=== PATIENT | female | born 1955 | race Caucasian/White ===

== ENCOUNTER 2016-02-28 19:12 | Observation (INO) | payer OTHER ==
[~2016-02-28] VITALS: Ht 170.2 cm; Wt 88.5 kg
[~2016-02-28 19:12] MED LIST: B-COCAP2 PO; CYM60 PO; LISI20TA3 PO; MULT-513 PO
[2016-02-28] MEDS ORDERED: LSN20 PO (19:36)
[2016-02-28] MEDS ORDERED: CYM/60 PO (19:36)
[2016-02-28] MEDS ORDERED: B-CO1CAP17 PO (19:37)
[2016-02-28 19:50] LABS: HEMATOCRIT 43.7 % (37-47); MEAN CORPUSCULAR HEMOGLOBIN 30.5 pg (25-34); MEAN CORPUSCULAR HGB CONC 33.2 g/dl (32-36); PLATELET COUNT 263 K/uL (130-400); RED BLOOD COUNT 4.75 M/uL (4.2-5.4); WHITE BLOOD COUNT 10.23 K/uL (4.8-10.8)
[2016-02-28 19:59] LABS: INR 0.9 (0.9-1.1); PARTIAL THROMBOPLASTIN RATIO 1.1; PROTHROMBIN TIME (PATIENT) 10.1 SECONDS (9.0-12.0)
[2016-02-28 20:05] LABS: ALT/SGPT 44 U/L (12-78); BLOOD UREA NITROGEN 17 mg/dl (7-18); BUN/CREATININE RATIO 21.9 (10-20); CALCIUM 9.3 mg/dl (8.5-10.1); CARBON DIOXIDE 25 mmol/L (21-32); CHLORIDE 103 mmol/L (98-107); CREATININE 0.79 mg/dl (0.60-1.20); GLUCOSE 85 mg/dl (70-99); POTASSIUM 4.2 mmol/L (3.5-5.1); SODIUM 141 mmol/L (136-145)
[2016-02-28] MEDS ORDERED: CONJ0.453 PO (20:07)
--- NOTE | 2016-02-28 20:08 | DIAGNOSTIC IMAGING REPORT ---
CHEST ONE VIEW PORTABLE CLINICAL HISTORY: Atypical chest pain and shortness of breath. COMPARISON STUDY: 05/03/2015 FINDINGS: The cardiac and mediastinal contours are normal. There is no evidence of focal pulmonary consolidation. There is no evidence of failure. No pleural effusions are visualized.[ IMPRESSION: No active disease in the chest. Electronically signed by: Aba Ascencio M.D. 02/28/2016 8:06 PM Dictated Date/Time: 02/28/2016 8:06 PM
[2016-02-28 20:09] LABS: ALB/GLOB RATIO 1.2 (0.9-2); ALKALINE PHOSPHATASE 96 U/L (45-117); AST/SGOT 24 U/L (15-37)
[2016-02-28] MEDS ORDERED: ASPIRIN 81 MG CHEW PO STA (20:13)
[2016-02-28] MEDS ORDERED: LABETALOL HCL IV 5 MG/ML 20ML IV STA (20:37)
[2016-02-28] MEDS ORDERED: NITROGLYCERIN 0.4 MG SL PER TAB CHARGE SL PRN (21:45)
[2016-02-28] MEDS ORDERED: MoRPHine SULFATE 2 MG/ML CARP IV PRN (21:45)
[2016-02-28] MEDS ORDERED: MAGNESIUM HYDROXIDE SUSP 30 ML UDC PO PRN (21:45)
[2016-02-28] MEDS ORDERED: POLYETHYLENE (MIRALAX) 17 GM PACK PO PRN (21:45)
[2016-02-28] MEDS ORDERED: ALUMINUM/MAGNESIUM/SIMETH (MAALOX MAX) 30 ML UDC PO PRN (21:45)
[2016-02-28] MEDS ORDERED: ONDANSETRON INJ 2 MG/ML 2 ML VIAL IV PRN (21:45)
[2016-02-28] MEDS ORDERED: ACETAMINOPHEN 325 MG TAB PO PRN (21:45)
[2016-02-28] MEDS ORDERED: IV FLUIDS COMPLETED PRN (22:00)
--- NOTE | 2016-02-28 22:08 | History and Physical ---
History & Physical Date & Time of Service: Feb 28, 2016 at 21:47 Chief Complaint: Chest Pain, Sob, Arms Feeling Heavy Primary Care Physician: Matthew Bah M.D. History of Present Illness Source: patient, hospital records Mrs Hernandez is a 60 year old post-menopausal female with hypertenion, dyslipidemia, and family hx of CAD who presents with chest pain and shortness of breath earlier today. She reports she had a similar episode 3 days ago while she was eating red onions and a hamburger, and suddenly developed central lower pain that radiated to the right side of the chest, which lasted 30 minute sand resolved on its own. She felt fine the next two days, then had another episode today after walking up 13 stairs to put groceries away. She noticed she felt very winded, and that this episode felt more severe than prior. She reports she then came to the ED for evaluation. Her BP was elevated at that time, and she had pain upon arrival as well. She reports she had a similar episode last year (April 2015) that was similar, and she had an echo at that time which was negative, as well as a normal MAN and TSH, and apparently had extreme exhaustion from bronchitis contributing to her symptoms. She reports she has followed up with her PCP Dr Matthew Bah and was told her cholesterol was elevated but has never been on lipid-lowering therapy. She reports the last two weeks she has been more tired than usual, and felt somewhat fever-mary but did not seek medical attention. She also reports nasal drainage, sinus pressure, and feels like she may be coming down with something. In the ED, she received 325mg aspirin, and lopressor to decrease her blood pressure. Her initial cardiac enzymes were negative. She currently denies any pain. She did have a low grade fever of 37.8C. Past Medical/Surgical History Medical Problems: (1) Cystocele Status: Resolved (2) High blood cholesterol Status: Chronic (3) Hypertension Status: Chronic (4) Rectocele Status: Resolved Family History FH: heart disease FH: lung disease FH: pneumonia Hypertension Social History Smoking Status: Never Smoker Marital Status: Occupational Status: employed Multi-Drug Resistant Organisms History of MDRO: No Allergies Coded Allergies: Adhesives (Unverified Allergy, Unknown, RED,ITCHY SKIN, 02/28/16) Latex1 -Allergic Contact Dermititis (Verified Allergy, Unknown, LOCALIZED RASH, 02/28/16) Home Medications Scheduled Duloxetine HCl (Cymbalta), 60 MG PO DAILY Estrog Conj/Medryoxyprog Acet (Prempro 0.45MG/1.5MG), 1 TAB PO MWF Lisinopril (Lisinopril), 20 MG PO DAILY Multivitamins/Minerals (Mvi With Minerals), 1 TAB PO DAILY Vitamin B Cmplx/Vitc/Folic Ac (Nephrocaps), 1 CAP PO DAILY Review of Systems See HPI for pertinent positives & negatives. A total of 10 systems reviewed and were otherwise negative unless otherwise noted in HPI Physical Exam Vital Signs Date Time Temp Pulse Resp B/P Pulse Ox O2 Delivery O2 Flow Rate FiO2 02/28/16 21:09 91 18 121/71 96 Room Air 02/28/16 20:30 81 18 115/68 96 Room Air 02/28/16 19:45 100 02/28/16 19:30 98 Room Air 02/28/16 19:26 99 Room Air 02/28/16 19:24 37.8 98 20 152/74 98 Room Air General Appearance: WD/WN, no apparent distress Head: normocephalic, atraumatic Eyes: normal inspection ENT: hearing grossly normal Neck: supple, no JVD Respiratory/Chest: lungs clear, normal breath sounds, no respiratory distress Cardiovascular: regular rate, rhythm, no murmur, normal peripheral pulses Abdomen/GI: normal bowel sounds, non tender, soft Back: no CVA tenderness, no muscle spasm Extremities/Musculoskelatal: no calf tenderness, no pedal edema Neurologic/Psych: alert, normal mood/affect, oriented x 3 Skin: no rash Diagnostics Laboratory Results Results Past 24 Hours Test 02/28/16 19:37 02/28/16 19:47 Range/Units White Blood Count 10.23 4.8-10.8 K/uL Red Blood Count 4.75 4.2-5.4 M/uL Hemoglobin 14.5 12.0-16.0 g/dL Hematocrit 43.7 37-47 % Mean Corpuscular Volume 92.0 80-100 fL Mean Corpuscular Hemoglobin 30.5 25-34 pg Mean Corpuscular Hemoglobin Concent 33.2 32-36 g/dl RDW Standard Deviation 46.1 36.4-46.3 fL RDW Coefficient of Variation 13.8 11.5-14.5 % Platelet Count 263 130-400 K/uL Mean Platelet Volume 10.0 7.4-10.4 fL Prothrombin Time 10.1 9.0-12.0 SECONDS Prothromb Time International Ratio 0.9 0.9-1.1 Activated Partial Thromboplast Time 27.5 21.0-31.0 SECONDS Partial Thromboplastin Ratio 1.1 D-Dimer 350 0-500 ug/L FEU Sodium Level 141 136-145 mmol/L Potassium Level 4.2 3.5-5.1 mmol/L Chloride Level 103 98-107 mmol/L Carbon Dioxide Level 25 21-32 mmol/L Anion Gap 13.0 3-11 mmol/L Blood Urea Nitrogen 17 7-18 mg/dl Creatinine 0.79 0.60-1.20 mg/dl Est Creatinine Clear Calc Drug Dose 87.9 ml/min Estimated GFR () 95.6 Estimated GFR (Non- 82.5 BUN/Creatinine Ratio 21.9 10-20 Random Glucose 85 70-99 mg/dl Calcium Level 9.3 8.5-10.1 mg/dl Total Bilirubin 0.4 0.2-1 mg/dl Aspartate Amino Transf (AST/SGOT) 24 15-37 U/L Alanine Aminotransferase (ALT/SGPT) 44 12-78 U/L Alkaline Phosphatase 96 45-117 U/L Total Creatine Kinase 49 26-192 U/L Creatine Kinase MB < 0.5 0.5-3.6 ng/ml Creatine Kinase MB Ratio 0-3.0 Total Protein 7.5 6.4-8.2 gm/dl Albumin 4.1 3.4-5.0 gm/dl Globulin 3.4 2.5-4.0 gm/dl Albumin/Globulin Ratio 1.2 0.9-2 Bedside Troponin I 0.000 0-0.045 ng/ml Diagnostic Radiology CHEST ONE VIEW PORTABLE CLINICAL HISTORY: Atypical chest pain and shortness of breath. COMPARISON STUDY: 05/03/2015 FINDINGS: The cardiac and mediastinal contours are normal. There is no evidence of focal pulmonary consolidation. There is no evidence of failure. No pleural effusions are visualized.[ IMPRESSION: No active disease in the chest. Electronically signed by: Aba Ascencio M.D. 02/28/2016 8:06 PM Dictated Date/Time: 02/28/2016 8:06 PM EKG EKG: Sinus tachycardia, large P wave in lead II, large R wave in V2, similar to prior EKG. No ST elevation. Impression Assessment and Plan 60 yo F with multiple cardiac risk factors (Family Hx, HTN, hyperlipidemia) who presents with chest pain, with low grade fever / fatigue - differential includes ACS, GERD, pericarditis, influenza. Plan Chest pain - Telemetry monitoring - Cardiac enzymes q6h - EKG if chest pain, repeat EKG in AM - Stress echo in AM. Pt's husbands report patient may not do well on treadmill with her sciatica, but when we discussed dobutamine echo she reported she would rather go on the treadmill. - NPO except meds - Received aspirin in ED, will continue with 81mg aspirin tomorrow - Check lipids in AM Hypertension - Continue Lisinopril 20mg in AM Fatigue, low grade fever - Check ESR, CRP, HbA1c, TSH - May consider outpatient sleep study Depression - Continue Cymbalta in AM CODE STATUS: FULL DISPO: TELE VTE: LOVENOX VTE Prophylaxis VTE Risk Assessment Done? Y/N: Yes Risk Level: Moderate Note Resident Physician Supervision Note: I was present with PGY2 Dr. Anabelle Wilcox during the admission history and exam. I discussed the case with the resident and agree with the findings and plan as documented in the note. Any exceptions or clarifications are listed here: none. 60yo female with h/o HTN, hyperlipidemia, anxiety disorder, and family h/o CAD who presented with an episode of chest discomfort/shortness of breath after she climbed 13 steps at her home and was putting groceries away in her kitchen. She simply did not feel well, and her brought her to the ER. En route her arms felt heavy but she did not have arm pain, numbness, or jaw pain. She felt a little nauseous earlier today, and had some loose stool (attributes the latter to something she ate yesterday). She denies chills, myalgias, arthralgias. She has had 2-3 days of runny nose (yellow mucous) with sinus pain over left maxillary sinus. She c/o fatigue. She was not aware of her low- grade temp in the ER. During my assessment she denies any residual chest pain. PMH, PSH, allergies, meds, sochx, famhx, ros - reviewed T 37.8, o/w VSS gen - looks tired sinuses - left maxillary sinus puffy appearing but nontender w/ palpation mouth - MMM, throat clear neck - shotty LAD heart - RRR, s1, s2, no murmur lungs - CTA b/l abd - soft, NT, BS+ ext - no edema labs - CBC, BMP nl troponin neg EKG - NSR, nl ST changes; rather large R wave V2 d-dimer normal ESR 20 A/P: 1. borderline febrile illness, r/o influenza. If negative could have early maxillary sinusitis (pt reports chronic sinus congestion with worsening of such last 2-3 days). Defer on abx at this time however. 2. chest pain - atypical - with neg stress echo in 2015. Serial cardiac enzymes, telemetry, consider repeat stress test in AM. 3. HTN - FAITH. 4. hyperlipidemia - check lipids AM. Other plans per Dr. Wilcox. Documented By: Devin Bradley MD Resident Tracking Resident Involvement: Resident Care Provided Care Provided: Adult Hospital Medicine
[2016-02-28] MEDS ORDERED: PANTOprazole SOD 40 MG TAB PO STA (22:15)
[2016-02-28] MEDS: NITROGLYCERIN OINT 2% 1GM PACKET EXT SCH (23:21)
[2016-02-28 23:33] VITALS: BP 137/78; PULSE 88; TEMP 36.6; O2SAT 94; Ht 170.2 cm; Wt 88.5 kg
[2016-02-28 23:48] LABS: INFLUENZA A PCR Neg for Influ A (NEG); INFLUENZA B PCR Neg for Influ B (NEG)
--- NOTE | 2016-02-29 01:47 | EMERGENCY ROOM VISIT NOTE ---
History Report prepared by Reynold: Eber Yeboah Under the Supervision of: Dr. Curt Velázquez M.D. First contact with patient: 19:41 Chief Complaint: CHEST PAIN Stated Complaint: CHEST PAIN, SOB, ARMS FEELING HEAVY Nursing Triage Summary: Patient ambulatory to triage, states "Three days ago, I got pressure in the center of my chest. I thought it was indigestion or anxiety. I got it again yesterday after eating red onions. Today, the pain actually hurts. The pain is pressure and tightness." Patient denies any cardiac history. Patient denies taking any medications to help with her symptoms at home. Patient reports a headache and states "I can feel the onset of a sinus infection." History of Present Illness The patient is a 60 year old female who presents to the Emergency Room with complaints of intermittent chest pain beginning three days ago. She states that she originally thought her pain may be related to indigestion, but is now unsure. She rates her pain as a 5/10 at its worst and describes it as a "dull" and "burning". The patient has a history of anxiety but does not feel that it is related to her symptoms. She has no history of similar chest pain. She also complains of neck pain which she noticed yesterday. The patient's notes that the patient had an episode of the pain occurring shortly prior to arrival after she was putting away groceries. She walked up 2 flights of steps and had to stop. Pt denies LOC, headache, fevers, chills, diaphoresis, visual changes, tearing pain radiating to the back, personal history or family history of aneurysm or pulmonary embolism, uncontrolled hypertension, breathing difficulties, leg swelling, coagulation abnormalities, prolonged travel, recent surgery or immobilization, nausea, vomiting, abdominal pain, melena, hematochezia, urinary symptoms, numbness, weakness, lymphadenopathy, rash, or other complaints. Source of History: patient Onset: Three days ago Position: chest Symptom Intensity: 5/10 at worst Quality: burning, dull Timing: intermittent Associated Symptoms: + neck pain Review of Systems See HPI for pertinent positives and negatives. A total of ten systems were reviewed and were otherwise negative. Past Medical & Surgical Medical Problems: (1) Chest pain (2) Cystocele (3) High blood cholesterol (4) Hypertension (5) Rectocele (6) Shortness of breath Family History FH: heart disease FH: lung disease FH: pneumonia Hypertension Social History Smoking Status: Never Smoker Alcohol Use: occasionally Marital Status: Housing Status: lives with family Occupation Status: employed Current/Historical Medications Scheduled Duloxetine HCl (Cymbalta), 60 MG PO DAILY Estrog Conj/Medryoxyprog Acet (Prempro 0.45MG/1.5MG), 1 TAB PO MWF Lisinopril (Lisinopril), 20 MG PO DAILY Multivitamins/Minerals (Mvi With Minerals), 1 TAB PO DAILY Vitamin B Cmplx/Vitc/Folic Ac (Nephrocaps), 1 CAP PO DAILY Allergies Coded Allergies: Adhesives (Unverified Allergy, Unknown, RED,ITCHY SKIN, 02/28/16) Latex1 -Allergic Contact Dermititis (Verified Allergy, Unknown, LOCALIZED RASH, 02/28/16) Physical Exam Vital Signs Date Time Temp Pulse Resp B/P Pulse Ox O2 Delivery O2 Flow Rate FiO2 02/28/16 21:09 91 18 121/71 96 Room Air 02/28/16 20:30 81 18 115/68 96 Room Air 02/28/16 19:45 100 02/28/16 19:30 98 Room Air 02/28/16 19:26 99 Room Air 02/28/16 19:24 37.8 98 20 152/74 98 Room Air Physical Exam GENERAL: Awake, alert, well-appearing, in no distress HENT: Normocephalic, atraumatic. Oropharynx unremarkable. EYES: Normal conjunctiva. Sclera non-icteric. NECK: Supple. No nuchal rigidity. FROM. No JVD. RESPIRATORY: Clear to auscultation. CARDIAC: Regular rate, normal rhythm. Extremities warm and well perfused. Pulses equal. ABDOMEN: Soft, non-distended. No tenderness to palpation. No rebound or guarding. No masses. RECTAL: Deferred. MUSCULOSKELETAL: Chest examination reveals no tenderness. The back is symmetrical on inspection without obvious abnormality. There is no CVA tenderness to palpation. No joint edema. LOWER EXTREMITIES: Calves are equal size bilaterally and non-tender. No edema. No discoloration. NEURO: Normal sensorium. No sensory or motor deficits noted. SKIN: No rash or jaundice noted. Medical Decision & Procedures ER Provider Diagnostic Interpretation: X-ray: Per my interpretation, radiologist review. CHEST ONE VIEW PORTABLE FINDINGS: The cardiac and mediastinal contours are normal. There is no evidence of focal pulmonary consolidation. There is no evidence of failure. No pleural effusions are visualized.[ IMPRESSION: No active disease in the chest. Electronically signed by: Aba Ascencio M.D. Laboratory Results 02/28/16 19:37 02/28/16 19:37 Test 02/28/16 19:37 02/28/16 19:45 02/28/16 19:47 Red Blood Count 4.75 M/uL (4.2-5.4) Mean Corpuscular Volume 92.0 fL (80-100) Mean Corpuscular Hemoglobin 30.5 pg (25-34) Mean Corpuscular Hemoglobin Concent 33.2 g/dl (32-36) RDW Standard Deviation 46.1 fL (36.4-46.3) RDW Coefficient of Variation 13.8 % (11.5-14.5) Mean Platelet Volume 10.0 fL (7.4-10.4) Erythrocyte Sedimentation Rate 20 mm/hr (0-21) Prothrombin Time 10.1 SECONDS (9.0-12.0) Prothromb Time International Ratio 0.9 (0.9-1.1) Activated Partial Thromboplast Time 27.5 SECONDS (21.0-31.0) Partial Thromboplastin Ratio 1.1 D-Dimer 350 ug/L FEU (0-500) Anion Gap 13.0 mmol/L (3-11) Est Creatinine Clear Calc Drug Dose 87.9 ml/min Estimated GFR () 95.6 Estimated GFR (Non- 82.5 BUN/Creatinine Ratio 21.9 (10-20) Calcium Level 9.3 mg/dl (8.5-10.1) Total Bilirubin 0.4 mg/dl (0.2-1) Aspartate Amino Transf (AST/SGOT) 24 U/L (15-37) Alanine Aminotransferase (ALT/SGPT) 44 U/L (12-78) Alkaline Phosphatase 96 U/L (45-117) C-Reactive Protein 0.36 mg/dl (0-0.29) Total Protein 7.5 gm/dl (6.4-8.2) Albumin 4.1 gm/dl (3.4-5.0) Globulin 3.4 gm/dl (2.5-4.0) Albumin/Globulin Ratio 1.2 (0.9-2) Thyroid Stimulating Hormone (TSH) 3.850 uIu/ml (0.300-4.500) Hepatitis C Antibody Screen NEG (NEG) Bedside Troponin I 0.000 ng/ml (0-0.045) Laboratory results reviewed by me Medications Administered Medications (Trade) Dose Ordered Sig/Azucena Route Start Time Stop Time Status Last Admin Dose Admin Aspirin (Aspirin Chew) 324 mg NOW STAT PO 02/28/16 20:13 02/28/16 20:14 DC 02/28/16 20:51 324 MG Labetalol HCl (Normodyne IV) 10 mg NOW STAT IV 02/28/16 20:37 02/28/16 20:38 DC 02/28/16 20:47 10 MG ECG Indication: chest pain Rate (beats per minute): 101 Rhythm: sinus tachycardia Findings: PVC, no acute ischemic change, no ectopy ED Course 2009: The patient was evaluated in room B10. A complete history and physical exam was performed. 2012: Ordered Aspirin Chew 324 mg PO. 2036: Ordered Normodyne 10 mg IV. 2116: Upon reexamination, the patient was resting comfortably. I discussed the test results and treatment plan with her. The patient will be evaluated for further management. Medical Decision Triage Nursing notes reviewed. The patient's presentation and history were concerning for chest pain. Etiologies such as cardiac ischemia, aortic dissection, pulmonary embolism, pneumonia, pneumothorax, musculoskeletal, infections, gastrointestinal, as well as others were entertained. The patient was evaluated. At this point she was doing well. She noted having exertional chest pain. Her CBC, chemistry panel, LFTs and lipase were negative. D-dimer and troponin were also negative. ECG did not reveal any acute ischemia. The patient had an unremarkable chest x-ray. The patient was fairly hypertensive and borderline tachycardic. The patient was given aspirin. She also received labetalol reassessed and she was doing well. Vital signs stable. Given the symptoms and history further evaluation and management in the hospital was felt to be appropriate. The chart was completed utilizing [employer] voice recognition software. Grammatical errors, random word insertions, pronoun errors, and incomplete sentences are an occasional consequence of this system due to software limitations, ambient noise, and hardware issues. Any formal questions or concerns about the content, text, or information contained within the body of this dictation should be directly addressed to the physician for clarification. Consults Time Called: 2111 Consulting Physician: Dr. Mirna AGUILERA Returned Call: 2116 Discussed the patient's case. The patient will be evaluated for further treatment and disposition. Impression Primary Impression: Substernal chest pain Additional Impression: HTN (hypertension) Scribe Attestation The scribe's documentation has been prepared under my direction and personally reviewed by me in its entirety. I confirm that the note above accurately reflects all work, treatment, procedures, and medical decision making performed by me. Departure Information Dispostion Being Evaluated By Hospitalist Referrals Matthew Bah M.D. (PCP) Patient Instructions My [facility] Problem Qualifiers
[2016-02-29 04:00] VITALS: O2SAT 94
[2016-02-29 04:19] VITALS: BP 109/67; PULSE 85; TEMP 36.7; O2SAT 95
[2016-02-29] MEDS: NITROGLYCERIN OINT 2% 1GM PACKET EXT SCH (05:25)
[2016-02-29 06:16] LABS: BASO % 0.2 %; BASO ABS # 0.02 K/uL (0-0.2); COMPLETE YES; EOS % 1.4 %; HEMATOCRIT 41.3 % (37-47); IG% 0.3 %; LYMPH % 32.9 %; LYMPH ABS # 2.89 K/uL (1.2-3.4); MEAN CELL VOLUME 93.4 fL (80-100); MEAN CORPUSCULAR HEMOGLOBIN 30.3 pg (25-34); MEAN CORPUSCULAR HGB CONC 32.4 g/dl (32-36); MONO % 6.9 %; NEUT % 58.3 %; PLATELET COUNT 237 K/uL (130-400); RED BLOOD COUNT 4.42 M/uL (4.2-5.4); WHITE BLOOD COUNT 8.79 K/uL (4.8-10.8)
[2016-02-29 06:32] LABS: PROTHROMBIN TIME (PATIENT) 10.3 SECONDS (9.0-12.0)
[2016-02-29 06:57] LABS: ALB/GLOB RATIO 1.2 (0.9-2); BUN/CREATININE RATIO 16.3 (10-20); CALCIUM 9.3 mg/dl (8.5-10.1); CHOLESTEROL/HDL RATIO 4.8; CREATININE 0.84 mg/dl (0.60-1.20); POTASSIUM 5.2 mmol/L (3.5-5.1)
[2016-02-29 07:08] LABS: ESTIMATED AVERAGE GLUCOSE 114 mg/dl; HA1C FLAG Normal (Normal)
[2016-02-29 07:36] VITALS: BP 101/61; PULSE 82; TEMP 36.6; O2SAT 93
[2016-02-29 08:00] VITALS: O2SAT 93
[2016-02-29] MEDS ORDERED: PNEUMOCOCCAL POLYSACCHARIDES 25 MCG/0.5 ML VIAL/SYR IM. ONE (08:00)
[2016-02-29] MEDS ORDERED: PNEUMOCOCCAL ADMINISTRATION CHARGE ONE (08:00)
[2016-02-29] MEDS ORDERED: LISINOPRIL 20 MG TAB PO SCH (09:00)
[2016-02-29] MEDS ORDERED: ENOXAPARIN 40 MG/0.4 ML SYR SC SCH (09:00)
[2016-02-29] MEDS ORDERED: PANTOprazole SOD 40 MG TAB PO SCH (09:00)
[2016-02-29] MEDS ORDERED: DULOXETINE HCL 60 MG CAP PO SCH (09:00)
[2016-02-29] MEDS ORDERED: ASPIRIN 81 MG ECTAB PO SCH (09:00)
--- NOTE | 2016-02-29 10:26 | EXERCISE STRESS ECHO ---
*NOTICE TO RECEIVING [employer] This information is strictly Confidential and protected under [place] law. [place] law prohibits you from making any further disclosure of this information unless further disclosure is expressly permitted by the written consent of the person to whom it pertains or is authorized by law. A general authorization for the release of medical or other information is not sufficient for this purpose. Hospital accepts no responsibility if the information is made available to any other person, INCLUDING THE PATIENT. Interpretation Summary * Name: JAROCHO PADILLA Study Date: 02/29/2016 07:52 AM BP: 109/78 mmHg * Patient Location: [facility] HR: 74 * : 1955 (M/d/yyyy) Gender: Female Height: 67 in * Age: 60 yrs Ethnicity: [place] Weight: 191 lb * Ordering Physician: Anabelle Wilcox * Referring Physician: BETHANY * Performed By: Amy Doyle RDCS * * Reason For Study: CHEST PAIN * BSA: 2.0 m2 * History: CHEST PAIN * -- Conclusions -- * Stress Echo: * 1. Negative stress echo for ischemia at 87% MPHR. * 2. Negative exercise ECG for ischemia 87% MPHR. * 3. No chest pain reported. * 4. Appropriate blood pressure response to exercise. * 5. No arrhythmia. * 6. Fair exercise tolerance. * Echo: * 1. Normal left ventricular size and systolic function. EF 55-60%. No regional wall motion abnormalities. No left ventricular hypertrophy. Type 1 diastolic dysfunction. * 2. No significant valvular abnormalities. Procedure Details * ECHOEX, CPT #03992 Left Ventricle * The left ventricle is normal in size. * There is normal left ventricular wall thickness. * Ejection Fraction = 55-60%. * The left ventricular ejection fraction increases normally with stress. The left ventricular end-systolic cavity size reduces post-stress (normal response). The left ventricular wall motion with stress is normal. * Resting wall motion: Normal. Stress wall motion: Appropriate increase in Left ventricular systolic function and decrease in cavity size. No stress induced segmental wall motion abnormalities. Right Ventricle * The right ventricle is normal in size and function. * The right ventricular systolic function is normal as assessed by tricuspid annular plane systolic excursion (TAPSE) (normal >1.5 cm). Atria * The left atrial size is normal. * Right atrial size is normal. * There is no evidence of atrial septal defect, but resolution does not allow assessment for a patent foramen ovale. Mitral Valve * The mitral valve is normal in structure and function. * There is no mitral valve stenosis. * There is trace mitral regurgitation. Tricuspid Valve * The tricuspid valve is not well visualized, but is grossly normal. * There is no tricuspid stenosis. * There is trace tricuspid regurgitation. Aortic Valve * The aortic valve is trileaflet. * No hemodynamically significant valvular aortic stenosis. * No aortic regurgitation is present. Pulmonic Valve * The pulmonary valve is inadequately visualized, but the Doppler data is adequate for interpretation. * There is no significant pulmonary regurgitation. Great Vessels * The aortic root is normal size. * Ascending aorta of normal dimension Pericardium * There is no pericardial effusion. Stress Parameters * NSR at 80 bpm. Incomplete RBBB. * Stress ECG: No ST changes. No arrhythmias. * No arrhythmia were noted with stress. * Rest heart rate was '74' BPM. * Rest blood pressure was '109/78' * Maximum heart rate achieved was 141 bpm. * Maximum heart rate was 87 % of maximum age-predicted heart rate. * Maximum blood pressure was '161/67' * Total exercise time was '7:06' * Maximum exercise MET level achieved was '8.70' METS * Maximum treadmill speed was '3.40' miles per hour. * Maximum treadmill elevation was '14.00'% grade. * Exercise was terminated due to 'ACHIEVING TARGET HR' * Normal blood pressure response to exercise. MMode 2D Measurements and Calculations IVSd 1.0 cm IVSs 1.3 cm LVIDd 4.2 cm LVIDs 2.9 cm LVPWd 1.1 cm LVPWs 1.8 cm IVS/LVPW 0.92 FS 32.5 % EDV(Teich) 80.4 ml ESV(Teich) 31.2 ml EF(Teich) 61.2 % EDV(cubed) 76.3 ml ESV(cubed) 23.4 ml EF(cubed) 69.3 % % IVS thick 24.6 % % LVPW thick 54.1 % LV mass(C)d 157.8 grams LV mass(C)dI 79.6 grams/m\S\2 LV mass(C)s 153.5 grams LV mass(C)sI 77.4 grams/m\S\2 SV(Teich) 49.2 ml SI(Teich) 24.8 ml/m\S\2 SV(cubed) 52.8 ml SI(cubed) 26.6 ml/m\S\2 Ao root diam 3.2 cm Ao root area 7.9 cm\S\2 LA dimension 3.3 cm asc Aorta Diam 2.8 cm LA/Ao 1.1 LVAd ap4 21.8 cm\S\2 LVLd ap4 7.4 cm EDV(MOD-sp4) 53.4 ml EDV(sp4-el) 54.3 ml LVAs ap4 12.7 cm\S\2 LVLs ap4 6.4 cm ESV(MOD-sp4) 21.9 ml ESV(sp4-el) 21.7 ml EF(MOD-sp4) 59.0 % EF(sp4-el) 60.0 % LVAd ap2 23.2 cm\S\2 LVLd ap2 7.7 cm EDV(MOD-sp2) 59.2 ml EDV(sp2-el) 59.5 ml LVAs ap2 13.4 cm\S\2 LVLs ap2 6.4 cm ESV(MOD-sp2) 26.1 ml ESV(sp2-el) 23.8 ml EF(MOD-sp2) 56.0 % EF(sp2-el) 60.0 % LVLd %diff 3.5 % EDV(MOD-bp) 57.3 ml LVLs %diff 0.06 % ESV(MOD-bp) 23.5 ml EF(MOD-bp) 58.9 % SV(MOD-sp4) 31.5 ml SI(MOD-sp4) 15.9 ml/m\S\2 SV(MOD-sp2) 33.1 ml SI(MOD-sp2) 16.7 ml/m\S\2 SV(MOD-bp) 33.8 ml SI(MOD-bp) 17.0 ml/m\S\2 SV(sp4-el) 32.6 ml SI(sp4-el) 16.4 ml/m\S\2 SV(sp2-el) 35.7 ml SI(sp2-el) 18.0 ml/m\S\2 Doppler Measurements and Calculations MV E max ankita 55.3 cm/sec MV A max ankita 58.2 cm/sec MV E/A 0.95 MV dec time 0.22 sec Ao V2 max 113.4 cm/sec Ao max PG 5.1 mmHg Ao max PG (full) 3.1 mmHg LV V1 max PG 2.0 mmHg LV V1 max 71.3 cm/sec TV E max ankita 37.8 cm/sec
--- NOTE | 2016-02-29 10:55 | Discharge Instructions ---
Discharge Instructions Admission Reason for Admission: Chest Pain Discharge Discharge Diagnosis / Problem: Chest pain Discharge Goals Goal(s): Decrease discomfort, Improve function, Increase independence, Improve disease control, Learn about illness, Diagnostic testing, Screening, Prevent Disease Progression Activity Recommendations Activity Limitations: resume your previous activity Exercise/Sports Limitations: none Shower/Bathe: no limitations Driving or Machine Use: no limitations . Instructions / Follow-Up Instructions / Follow-Up Patient to be discharged home Stress ECHO negative for any coronary disease Possible chest pressure from reflux, recommended zantac over the counter Will need to follow up with Dr Matthew Bah in 1-2 weeks Current Hospital Diet Patient's current hospital diet: AHA Diet (Heart Healthy) Discharge Diet Recommended Diet: Low Fat Diet Pending Studies Studies pending at discharge: no Laboratory Results Hemoglobin A1c Test 02/28/16 19:47 Range/Units Estimated Average Glucose 114 mg/dl Hemoglobin A1c 5.6 4.5-5.6 % Lipid Panel Test 02/29/16 05:23 Range/Units Triglycerides Level 201 H 0-150 mg/dl Cholesterol Level 229 H 0-200 mg/dl HDL Cholesterol 48 mg/dl Cholesterol/HDL Ratio 4.8 LDL Cholesterol, Calculated 141 mg/dl Medical Emergencies . Who to Call and When: Medical Emergencies: If at any time you feel your situation is an emergency, please call 911 immediately. . Non-Emergent Contact Non-Emergency issues call your: Primary Care Provider Call Non-Emergent contact if: your pain is worsening . . "Provider Documentation" section prepared by Enoch Euegne. VTE Core Measure Inpt VTE Proph given/why not?: Enoxaparin (Lovenox)SQ
[2016-02-29 11:55] VITALS: BP 95/53; PULSE 87; TEMP 36.8; O2SAT 94
[2016-02-29 12:10] VITALS: BP 95/53; PULSE 87; TEMP 36.8; O2SAT 94
--- NOTE | 2016-02-29 14:10 | Discharge Summary ---
Discharge Summary Admission Date: Feb 28, 2016 at 21:38 Discharge Date: Feb 29, 2016 Discharge Disposition: Home Medication Reconciliation Continued Medications: Duloxetine HCl (Cymbalta) 60 Mg Cap 60 MG PO DAILY, #14 Estrog Conj/Medryoxyprog Acet (Prempro 0.45MG/1.5MG) Tab 1 TAB PO MWF, #28 Lisinopril (Lisinopril) 20 Mg Tab 20 MG PO DAILY, #90 Multivitamins/Minerals (Mvi With Minerals) Tab 1 TAB PO DAILY, TAB Vitamin B Cmplx/Vitc/Folic Ac (Nephrocaps) Cap 1 CAP PO DAILY, CAP Discharge Exam Review of Systems: Constitutional: No chills, No fever Respiratory: No cough, No sputum Cardiovascular: No chest pain, No orthopnea Abdomen: No nausea, No pain Musculoskeletal: No joint pain, No muscle pain Genitourinary - Female: No dysuria, No urinary frequency, No urinary urgency Neurologic: No paralysis, No weakness Psychiatric: No anhedonism, No anxiety, No depression symptoms Physical Exam: General Appearance: WD/WN, no apparent distress Eyes: normal inspection, PERRL Neck: supple, no adenopathy Respiratory/Chest: chest non-tender, lungs clear, normal breath sounds Cardiovascular: regular rate, rhythm, no edema, no gallop Abdomen / GI: non tender, soft Neurologic/Psychiatric: alert, normal mood/affect, oriented x 3 Hospital Course HPI: Mrs Hernandez is a 60 year old post-menopausal female with hypertenion, dyslipidemia, and family hx of CAD who presents with chest pain and shortness of breath earlier today. She reports she had a similar episode 3 days ago while she was eating red onions and a hamburger, and suddenly developed central lower pain that radiated to the right side of the chest, which lasted 30 minute sand resolved on its own. She felt fine the next two days, then had another episode today after walking up 13 stairs to put groceries away. She noticed she felt very winded, and that this episode felt more severe than prior. She reports she then came to the ED for evaluation. Her BP was elevated at that time, and she had pain upon arrival as well. She reports she had a similar episode last year (April 2015) that was similar, and she had an echo at that time which was negative, as well as a normal MAN and TSH, and apparently had extreme exhaustion from bronchitis contributing to her symptoms. She reports she has followed up with her PCP Dr Matthew Bah and was told her cholesterol was elevated but has never been on lipid-lowering therapy. She reports the last two weeks she has been more tired than usual, and felt somewhat fever-mary but did not seek medical attention. She also reports nasal drainage, sinus pressure, and feels like she may be coming down with something. In the ED, she received 325mg aspirin, and lopressor to decrease her blood pressure. Her initial cardiac enzymes were negative. She currently denies any pain. She did have a low grade fever of 37.8C. 60 yo F with multiple cardiac risk factors (Family Hx, HTN, hyperlipidemia) who presents with chest pain, with low grade fever / fatigue - differential includes ACS, GERD, pericarditis, influenza. Plan Chest pain - Telemetry monitoring - Cardiac enzymes q6h unremarkable - EKG sinus tachy with occasional PVCs - Stress echo in AM no inducible ischemia, preserved EF - Received aspirin in ED, will continue with 81mg aspirin - Lipid panel: TG 201 LDL 141 HDL 48 - HgA1c 5.6 TSH WNL - Chest pain atypical in nature, likely related to GERD Hypertension - Continue Lisinopril 20mg in AM Fatigue, low grade fever - May consider outpatient sleep study Depression - Continue Cymbalta in AM Total Time Spent: Greater than 30 minutes This includes examination of the patient, discharge planning, medication reconciliation, and communication with other providers. Discharge Instructions Please refer to the electronic Patient Visit Report (Discharge Instructions) for additional information. Additional Copies To Matthew Bah M.D.
== END 2016-02-29 12:27 | disposition home or self-care (01) ==
LOC: ENRESERVDT → ENRESERVTM → C.EDB 19:13 → C.2T 21:38
PROVIDERS: ADMIT Internal Medicine; ATTEND Hospitalist
DX: R07.89 Other chest pain (principal); E78.5 Hyperlipidemia, unspecified; I10 Essential (primary) hypertension; Z82.49 Family history of ischemic heart disease and other diseases of the circulatory system; R06.02 Shortness of breath; R53.83 Other fatigue; R50.9 Fever, unspecified; F32.9 Major depressive disorder, single episode, unspecified

== ENCOUNTER → 2016-08-26 | Outpatient (CLI) | payer OTHER ==
[~2016-08-26] MED LIST changes: +B-CO1CAP17 PO; -B-COCAP2 PO; +CONJ0.453 PO; +CYM/60 PO; -CYM60 PO; -LISI20TA3 PO; +LSN20 PO
--- NOTE | 2016-08-26 12:18 | MAMMOGRAPHY REPORT ---
BILATERAL DIGITAL DIAGNOSTIC MAMMOGRAM TOMOSYNTHESIS WITH CAD AND TARGETED RIGHT ULTRASOUND: 7 CLINICAL HISTORY: 60-year-old woman presents with a one-month history of a pea-sized palpable lump in the right upper outer quadrant. She reports that is sometimes tender. No skin erythema or nipple d ischarge. No family history of breast cancer. Also time of annual bilateral screening exam. TECHNIQUE: Bilateral breast tomosynthesis in addition to standard 2D mammography was performed. Curre nt study was also evaluated with a Computer Aided Detection (CAD) system. COMPARISON: Comparison is made to exams dated: 09/03/2015 mammogram, 07/30/2014 mammogram, 07/29/2013 m ammogram, 05/22/2012 mammogram, 05/03/2011 mammogram - [facility], and 02/23/2007. BREAST COMPOSITION: There are scattered areas of fibroglandular density in both breasts. FINDINGS: A triangular skin palpable marker overlies the upper outer posterior right breast, denoting the palpable lump pointed out by the patient. The breast bregma pattern is similar to prior mammogr ams. There is stable asymmetry in the lateral left breast. No new suspicious mass, architectural di stortion or cluster of microcalcifications is seen, with particular attention to the area of palpable concern in the right upper outer quadrant. Targeted ultrasound was performed in the 9:00 and 10:00 axes of the right breast, 15 cm from the nipp le, in the area of lump pointed out by the patient. I could not palpate a discrete lump but there is nodular tissue in this location. On ultrasound, normal fibroglandular tissue is seen without a disc rete solid or cystic mass. IMPRESSION: ACR BI-RADS CATEGORY 2: BENIGN, TARGETED ULTRASOUND ACR BI-RADS CATEGORY 2: BENIGN 1. There is no mammographic or targeted sonographic evidence of malignancy in the right breast. No suspicious mammographic or sonographic abnormality to explain the pea-sized palpable lump in the righ t upper outer quadrant. Therefore, clinical follow-up is recommended as well as continued monitoring by the patient. 2. Stable mammographic appearance of the left breast, without mammographic evidence of malignancy. 3. A 1 year screening mammogram is recommended. The patient has been verbally notified of the results. Approximately 10% of breast cancers are not detected with mammography. A negative mammographic report should not delay biopsy if a clinically suggestive mass is present. Shi Mckeon M.D. ay/:08/26/2016 10:41:18 Assistant Quality Manager: Olga WHITE(Juwan)(M), [facility] letter sent: Normal 1/2 BI-RADS Code: ACR BI-RADS Category 2: Benign Ultrasound BI-RADS: ACR BI-RADS Category 2: Benign
== END | disposition home or self-care (01) ==
LOC: C.MAMM 10:07
PROVIDERS: ATTEND Internal Medicine
DX: N63 Unspecified lump in breast (principal)

== ENCOUNTER → 2017-03-27 | Outpatient (CLI) | payer OTHER | END | disposition home or self-care (01) | LOC: C.PAPS 14:28 | PROVIDERS: ATTEND Obstetrics & Gynecology | DX: Z01.419 Encounter for gynecological examination (general) (routine) without abnormal findings (principal) ==

== ENCOUNTER → 2017-03-28 | Outpatient (CLI) | payer OTHER | END | disposition home or self-care (01) | LOC: C.PATHSPEC 16:24 | PROVIDERS: ATTEND Physician Assistant | DX: L82.1 Other seborrheic keratosis (principal); D22.9 Melanocytic nevi, unspecified ==

== ENCOUNTER → 2017-09-04 | Outpatient (CLI) | payer OTHER ==
[~2017-09-04] MED LIST changes: +LISI-726 PO; -LSN20 PO
--- NOTE | 2017-09-04 15:43 | MAMMOGRAPHY REPORT ---
BILATERAL DIGITAL SCREENING MAMMOGRAM TOMOSYNTHESIS WITH CAD: 09/04/2017 CLINICAL HISTORY: Routine screening. TECHNIQUE: The study was acquired using full field digital technology and interpreted from soft copy. Breast tomosynthesis in addition to standard 2D mammography was performed. Current study was also ev aluated with a Computer Aided Detection (CAD) system. COMPARISON: Comparison is made to exams dated: 08/26/2016 mammogram, 09/03/2015 mammogram, 07/30/2014 m ammogram, 07/29/2013 mammogram, 05/22/2012 mammogram, and 05/03/2011 mammogram - [facility] enter. BREAST COMPOSITION: There are scattered areas of fibroglandular density in both breasts. FINDINGS: A linear scar marker overlies the left upper outer quadrant. The parenchymal pattern is unc hanged. No developing mass, architectural distortion or cluster of suspicious microcalcifications is seen in either breast. IMPRESSION: ACR BI-RADS CATEGORY 2: BENIGN There is no mammographic evidence of malignancy. A 1 year screening mammogram is recommended.( 019) The patient will receive written notification of the results. Some breast cancers are not detected with mammography. A negative mammographic report should not carli y biopsy if a clinically suggestive mass is present. Shi Mckeon M.D. ay/:09/04/2017 14:47:57 Stunt Double: RT Don(Juwan)(M), [facility] letter sent: Normal 1/2 BI-RADS Code: ACR BI-RADS Category 2: Benign
== END | disposition home or self-care (01) ==
LOC: C.MAMM 10:55
PROVIDERS: ATTEND Internal Medicine
DX: Z12.31 Encounter for screening mammogram for malignant neoplasm of breast (principal)